=== PATIENT | male | born 1970 | race Caucasian/White ===

== ENCOUNTER 2020-09-08 17:10 | Outpatient (REF) | payer OTHER, SELFPAY ==
[2020-09-08 17:56] LABS: MANUAL DIFF FLAG NO
[2020-09-08 17:59] LABS: Glucose Urine UA NEG (NEG); Leukocyte Esterase Urine NEG (NEG); Nitrite Urine NEG (NEG); Urine Blood 1+ (NEG); Urine Ketones NEG (NEG); Urine Protein NEG (NEG-TRACE)
[2020-09-08 18:01] LABS: Appearance Urine CLEAR; Color Urine YELLOW
[2020-09-08 18:05] LABS: Bacteria Urine TRACE /LPF; RBC Urine 0-2 /HPF (0); Squamous Epithelial Cell Urine TRACE /LPF; WBC Urine 0 /HPF (0-4)
[2020-09-08 18:24] LABS: Basophils Percent Auto 0.4 % (0-2); Eosinophils Absolute Auto 0.1 X10*3/uL (0.0-0.4); Hemoglobin 14.4 g/dl (14.0-18.0); Imm Gran Abs Auto 0.03 X10*3/uL (0.00-0.03); Imm Gran Pct Auto 0.4 % (0.0-0.4); Lymphocytes Absolute Auto 1.8 X10*3/uL (1.2-4.9); Lymphocytes Percent Auto 23.2 % (20-40); Mean Corpuscular HGB Conc 33.5 g/dl (31.0-36.0); Mean Corpuscular Hemoglobin 30.6 pg (27.0-33.0); Mean Corpuscular Volume 91.3 fL (80-98); Mean Platelet Volume 8.8 fL (9.4-12.4); Monocytes Absolute Auto 0.6 X10*3/uL (0.1-1.2); Neutrophils Absolute Auto 5.4 X10*3/uL (2.0-8.3); Platelet Count 341 X10*3/uL (160-400); Red Blood Count 4.71 X10*6/uL (4.60-5.80); Red Cell Distribution Width 12.6 % (11.0-16.0); White Blood Count 7.9 X10*3/uL (4.8-10.8)
[2020-09-08 18:28] LABS: Alanine Aminotransferase 27 U/L (0-40); Albumin Level 4.3 g/dL (3.5-5.0); Alkaline Phosphatase 62 U/L (39-117); Anion Gap 11 (12-20); Aspartate Amino Transferase 24 U/L (5-37); Blood Urea Nitrogen 12 mg/dL (9-16); C Reactive Protein < 0.02 mg/dL (< or = 0.50); Calcium 9.6 mg/dL (8.4-10.2); Carbon Dioxide 25 mmol/L (22-29); Chloride 105 mmol/L (96-108); Cholesterol 178 mg/dL; Estimated Glomerular Filt Rate > 60; Glucose Fasting 79 mg/dL (60-99); HDL Cholesterol 53 mg/dL; LDL Cholesterol Calculated 109 mg/dl; Potassium 4.3 mmol/L (3.3-5.1); Sodium 137 mmol/L (135-145); Total Protein 6.7 g/dL (6.5-8.0); Triglycerides 81 mg/dL
[2020-09-08 18:49] LABS: Prostate Specific Antigen 0.81 ng/mL (<0.05-4.0)
== END 2020-09-08 17:11 | disposition home or self-care (01) ==
LOC: HO.LAB 17:10
PROVIDERS: PCP Internal Medicine; Visit Provider Internal Medicine
DX: Z00.00 Encounter for general adult medical examination without abnormal findings (principal); Z12.5 Encounter for screening for malignant neoplasm of prostate; R35.1 Nocturia
CPT/HCPCS: 36415; 80053; 80061; 81001; 82550; 84153; 85025; 86140

== ENCOUNTER 2021-11-24 07:03 | Outpatient (REF) | payer OTHER, SELFPAY ==
[2021-11-24 11:13] LABS: Basophils Percent Auto 0.5 % (0-2); Eosinophils Absolute Auto 0.3 X10*3/uL (0.0-0.4); Eosinophils Percent Auto 3.8 % (0-4); Hematocrit 46.4 % (42.0-52.0); Hemoglobin 15.2 g/dl (14.0-18.0); Imm Gran Abs Auto 0.02 X10*3/uL (0.00-0.03); Imm Gran Pct Auto 0.3 % (0.0-0.4); Lymphocytes Absolute Auto 2.4 X10*3/uL (1.2-4.9); MANUAL DIFF FLAG NO; Mean Corpuscular HGB Conc 32.8 g/dl (31.0-36.0); Mean Corpuscular Hemoglobin 29.9 pg (27.0-33.0); Mean Corpuscular Volume 91.3 fL (80.0-98.0); Mean Platelet Volume 9.6 fL (9.4-12.4); Monocytes Absolute Auto 0.5 X10*3/uL (0.1-1.2); Monocytes Percent Auto 7.4 % (2-11); Neutrophils Absolute Auto 4.1 x10*3/uL (2.0-8.3); Platelet Count 336 X10*3/uL (160-400); Red Blood Count 5.08 X10*6/uL (4.60-5.80); Red Cell Distribution Width 12.5 % (11.0-16.0); White Blood Count 7.3 X10*3/uL (4.8-10.8)
[2021-11-24 11:50] LABS: Vitamin B12 397 pg/mL (200-900)
[2021-11-24 11:59] LABS: Prostate Specific Antigen 0.97 ng/mL (<0.05-4.0)
[2021-11-24 12:11] LABS: Alanine Aminotransferase 23 U/L (0-40); Albumin Level 4.3 g/dL (3.5-5.0); Alkaline Phosphatase 76 U/L (39-117); Anion Gap 13 (12-20); Aspartate Amino Transferase 21 U/L (5-37); Bilirubin Total 0.9 mg/dL (0.0-1.0); Blood Urea Nitrogen 16 mg/dL (9-16); C Reactive Protein 0.03 mg/dL (< or = 0.50); Calcium 9.2 mg/dL (8.4-10.2); Carbon Dioxide 25 mmol/L (22-29); Chloride 106 mmol/L (96-108); Cholesterol 167 mg/dL; Estimated Glomerular Filt Rate > 60; Glucose Fasting 88 mg/dL (60-99); HDL Cholesterol 46 mg/dL; LDL Cholesterol Calculated 106 mg/dl; Potassium 4.5 mmol/L (3.3-5.1); Sodium 139 mmol/L (135-145); Total Protein 6.9 g/dL (6.5-8.0); Triglycerides 75 mg/dL
== END 2021-11-24 07:04 | disposition home or self-care (01) ==
LOC: HO.HMGCLDS 07:03
PROVIDERS: Visit Provider Internal Medicine
DX: Z00.00 Encounter for general adult medical examination without abnormal findings (principal); Z12.5 Encounter for screening for malignant neoplasm of prostate
CPT/HCPCS: 36415; 80053; 80061; 82550; 82607; 84153; 85025; 86140

== ENCOUNTER 2022-07-13 08:05 | Outpatient (REF) | payer OTHER, SELFPAY ==
[2022-07-13 11:25] LABS: MANUAL DIFF FLAG NO
[2022-07-13 11:45] LABS: Appearance Urine Clear; Color Urine Yellow; Glucose Urine UA Negative (Negative); Leukocyte Esterase Urine Negative (Negative); Nitrite Urine Negative (Negative); Urine Blood Negative (Negative); Urine Ketones Negative (Negative); Urine Protein Negative (Neg-Trace)
[2022-07-13 12:04] LABS: Basophils Percent Auto 0.5 % (0-2); Eosinophils Absolute Auto 0.1 X10*3/uL (0.0-0.4); Eosinophils Percent Auto 2.1 % (0-4); Hematocrit 48.5 % (42.0-52.0); Hemoglobin 15.8 g/dl (14.0-18.0); Imm Gran Abs Auto 0.01 X10*3/uL (0.00-0.03); Imm Gran Pct Auto 0.2 % (0.0-0.4); Lymphocytes Absolute Auto 1.5 X10*3/uL (1.2-4.9); Lymphocytes Percent Auto 24.7 % (20-40); Mean Corpuscular HGB Conc 32.6 g/dl (31.0-36.0); Mean Corpuscular Hemoglobin 29.8 pg (27.0-33.0); Mean Corpuscular Volume 91.3 fL (80.0-98.0); Mean Platelet Volume 9.3 fL (9.4-12.4); Monocytes Absolute Auto 0.4 X10*3/uL (0.1-1.2); Monocytes Percent Auto 6.8 % (2-11); Neutrophils Absolute Auto 4.1 x10*3/uL (2.0-8.3); Neutrophils Percent Auto 65.7 % (45-73); Platelet Count 336 X10*3/uL (160-400); Red Blood Count 5.31 X10*6/uL (4.60-5.80); Red Cell Distribution Width 12.2 % (11.0-16.0); White Blood Count 6.2 X10*3/uL (4.8-10.8)
[2022-07-13 12:39] LABS: Alanine Aminotransferase 24 U/L (0-40); Albumin Level 4.1 g/dL (3.5-5.0); Alkaline Phosphatase 92 U/L (39-117); Anion Gap 13 (12-20); Aspartate Amino Transferase 18 U/L (5-37); Bilirubin Total 0.8 mg/dL (0.0-1.0); Blood Urea Nitrogen 15 mg/dL (9-16); Calcium 9.2 mg/dL (8.4-10.2); Carbon Dioxide 27 mmol/L (22-29); Chloride 106 mmol/L (96-108); Cholesterol 177 mg/dL; Estimated Glomerular Filt Rate > 60; Glucose Fasting 89 mg/dL (60-99); HDL Cholesterol 42 mg/dL; LDL Cholesterol Calculated 124 mg/dl; Potassium 4.7 mmol/L (3.3-5.1); Prostate Specific Antigen 0.83 ng/mL (<0.05-4.0); Sodium 141 mmol/L (135-145); Total Protein 6.5 g/dL (6.5-8.0); Triglycerides 56 mg/dL
== END 2022-07-13 08:06 | disposition home or self-care (01) ==
LOC: HO.HMGCLDS 08:05
PROVIDERS: PCP Internal Medicine; Visit Provider Internal Medicine
DX: Z00.00 Encounter for general adult medical examination without abnormal findings (principal); Z12.5 Encounter for screening for malignant neoplasm of prostate
CPT/HCPCS: 36415; 80053; 80061; 81003; 84153; 85025

== ENCOUNTER 2023-05-11 11:31 | Emergency (ER) | payer OTHER, SELFPAY ==
--- NOTE | 2023-05-11 11:28 | ED.GENADULT ---
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 Rates it a 1 or 2/10 and states its worse w/ deep breathing. No significant past medical history or cardiac history. No history of clots. He does report he is under a lot stress at work. No recent travel, not a smoker, not sedentary, no history of malignancy. Related Data Previous Rx's Medication Instructions Recorded ketorolac 10 mg tablet 10 mg PO TID PRN pain 5 days #15 05/11/23 tabs prednisone 20 mg tablet 20 mg PO DAILY 5 days #5 tabs 05/11/23 Allergies Allergy/AdvReac Type Severity Reaction Status Date / Time No Known Allergies Allergy Verified 05/11/23 16:28 Review of Systems Review of Systems: Constitutional : No Weight loss, No Fever, No Chills, No Fatigue, No Malaise ENT/Mouth : No sore throat, No Rhinorrhea Eyes: No Eye Pain, No Swelling, No Redness Cardiovascular : No Chest Pain, No SOB, No Dyspnea on Exertion, No Orthopnea, No Edema, No Palpitations Respiratory : No Cough, No Sputum, No Wheezing Gastrointestinal : No Nausea, No Vomiting, No Diarrhea, No Constipation, No abdominal Pain, No Hematochezia, No Melena Genitourinary : No Dysuria, No Urinary Frequency, No Hematuria, Musculoskeletal : No joint pain, No Myalgias, No Joint Swelling Skin : No Skin Lesions, No rash Neuro : No Weakness, No Numbness, No Dizziness, No Headache Psych : No Anxiety/Panic, No Depression All other systems reviewed and are negative Yes all other systems are reviewed and are negative [facility] Past Medical History Attestation statement: The following information was validated with the patient. Source: old records reviewed and nursing notes reviewed Onset Date is defined in the Problem List Problems that require an onset date and time if occurred within 24 hrs of arrival to the ED Aortic Dissection and Rupture; Neurologic impairment; Cardiopulmonary Arrest; Endotracheal Intubation; Insertion or Replacement of Mechanical Circulatory Assist Device Social History Social History Smoked in Last 30 Days: No Advance Directives: Yes Advance Directives Information Provided: Yes Advance Directives on File: No Physical Exam ED Vital Signs: Vital Signs - 24 hr 05/11/23 11:38 05/11/23 15:24 Temperature 98.1 F Pulse Rate 77 68 Respiratory Rate 18 18 Blood Pressure 121/83 125/76 Pulse Oximetry 100 99 Oxygen Delivery Method Room Air Room Air BMI result Body Mass Index 28.5 vss Appearance: Alert.? Oriented X3.? No acute distress.? Head: Normocephalic, atraumatic, no step-offs or deformities Eyes: Pupils equal, round and reactive to light.? ENT: Pharynx normal.? Neck: Normal inspection.? Neck supple.? CVS: Normal heart rate and rhythm.? Pulses normal.? No appreciated murmur. Respiratory: No respiratory distress.? Breath sounds normal.? Abdomen: Soft and nontender.? Skin: Skin warm and dry.? Normal skin color.? Normal skin turgor.? Extremities: No lower extremity edema.? No calf ttp. 5/5 strength to bilateral upper and lower extremities Neuro: Oriented X 3.? No motor deficit.? No sensory deficit. CN 2-12 intact Course Reevaluation(s) Reevaluation #1: CBC unremarkable. Chemistry no acute findings requiring intervention. Troponin negative x2, EKG nonischemic. D-dimer 275, CT ordered, CTA with no evidence of PE, no evidence of aortic aneurysm or dissection, minimal dependent bibasilar ground-glass atelectasis or nonspecific inflammatory process. VT negative. Chest x-ray unremarkable. UA w/o infection. Flu/COVID/RSV negative. Time: 16:14 Reevaluation #2: Had a long conversation with patient about his results. Explained to me should not return to work do any strenuous exercises until medically cleared by Cardiology. He does not have any pain at this time. He tells me this may just be stress. He is feeling much better. Discussed this case with Dr. Stinson who agrees with diagnosis and treatment plan. I will still discuss this case w/ cardiology Time: 16:32 Reevaluation #3: I did gary text Dr. Knapp, and explained to him i feel as though this patient would benifit from prompt cardiology f/u. Time: 16:34 Additional Reevaluation(s): Cardiology in room speaking to patient. 1656 Cardiology did want patient to stay and get a stress test on Sunday, patient did not want to stay over the weekend. Cardiology will set him up for stress test early next week. Patient did not want to stay in was adamant he would like to go home. He was educated on worrisome signs and symptoms. Educated patient on diagnosis and treatment plan, answered all question, patient verbalizes understanding. At this time patient will be discharged home, advised to return with new or worsening symptoms. Educated on worrisome signs and symptoms and when to return. Medications Administered Discontinued Medications Generic Name Dose Route Start Last Admin Trade Name Freq PRN Reason Stop Dose Admin Iohexol 100 ml 05/11/23 13:28 05/11/23 13:28 Iohexol 350 Mg/Ml 100 Ml Infus..Btl IV 05/11/23 13:29 65 ml ONCE ONE Administration Ketorolac Tromethamine 30 mg 05/11/23 16:14 05/11/23 16:28 Ketorolac Tromethamine 15 Mg/Ml Vial IM 05/11/23 16:15 Not Given ONCE ONE Medical Decision Making Medical Decision Making [facility] Narrative: 52-year-old male presents with chest pain that started with exertion while at work Physical examination benign History and physical exam concerning for possible angina versus ACS versus PE versus viral illness. Other differentials include musculoskeletal spasm versus anxiety. Unlikely dissection, acute respiratory distress. Plan labs, EKG, imaging, viral test peer Differential Diagnosis Differential Diagnoses: The differential diagnosis associated with the presentation includes History and physical exam concerning for possible angina versus ACS versus PE versus viral illness. Other differentials include musculoskeletal spasm versus anxiety. Unlikely dissection, acute respiratory distress. Admission/Observation Consideration of admission/observation: Escalation of care including admission/observation considered Consult Healthcare Provider Management of the patient was discussed with: Nurse Practitioner Adult (Cardiology ) Lab Data [facility] Lab Attestation statement: I reviewed the patient's lab results. 05/11/23 11:51 05/11/23 11:50 Labs: Lab Results 05/11/23 05/11/23 05/11/23 Range/Units 11:50 11:51 14:11 WBC 7.7 (4.8-10.8) X10*3/uL RBC 4.97 (4.60-5.80) X10*6/uL Hgb 15.2 (14.0-18.0) g/dl Hct 43.9 (42.0-52.0) % MCV 88.3 (80.0-98.0) fL MCH 30.6 (27.0-33.0) pg MCHC 34.6 (31.0-36.0) g/dl RDW 11.7 (11.0-16.0) % Plt Count 310 (160-400) X10*3/uL MPV 8.7 L (9.4-12.4) fL Immature Gran % (Auto) 0.1 (0.0-0.4) % Neut % (Auto) 80.4 H (45-73) % Lymph % (Auto) 12.9 L (20-40) % Kay % (Auto) 5.8 (2-11) % Eos % (Auto) 0.4 (0-4) % Baso % (Auto) 0.4 (0-2) % Lymph # (Auto) 1.0 L (1.2-4.9) X10*3/uL Kay # (Auto) 0.5 (0.1-1.2) X10*3/uL Eos # (Auto) 0.0 (0.0-0.4) X10*3/uL Baso # (Auto) 0.0 (0.0-0.2) X10*3/uL Abs Immat Gran (auto) 0.01 (0.00-0.03) X10*3/uL Absolute Neuts (auto) 6.2 (2.0-8.3) x10*3/uL Absolute Nucleated RBC 0.000 (0.0-0.012) X10*3/uL Nucleated RBC % (auto) 0.0 (0.0-0.2) /100WBC D-Dimer High Sensitivty 275 NG/ML Sodium 138 (135-145) mmol/L Potassium 5.0 (3.3-5.1) mmol/L Chloride 105 (96-108) mmol/L Carbon Dioxide 26 (22-29) mmol/L Anion Gap 12 (12-20) BUN 10 (9-16) mg/dL Creatinine 1.00 (0.5-1.4) mg/dL Estim Creat Clear Calc 104.7 Estimated GFR > 60 Random Glucose 102 (60-115) mg/dL Calcium 9.5 (8.4-10.2) mg/dL Total Bilirubin 0.6 (0.0-1.0) mg/dL AST 26 (5-37) U/L ALT 26 (0-40) U/L Alkaline Phosphatase 77 (39-117) U/L Troponin I High Sens < 2.7 (<3.5-35.0) ng/L B-Natriuretic Peptide 23 (<100) pg/mL Total Protein 7.1 (6.5-8.0) g/dL Albumin 4.3 (3.5-5.0) g/dL Urine Color Yellow Urine Appearance Clear Urine pH 7.5 (5.0-9.0) Ur Specific [place] 1.010 (1.005-1.025) Urine Protein Negative (Neg-Trace) mg/dL Urine Glucose (UA) Negative (Negative) mg/dL Urine Ketones Negative (Negative) mg/dL Urine Blood Negative (Negative) Urine Nitrite Negative (Negative) Ur Leukocyte Esterase Negative (Negative) Influenza Type A (PCR) NEGATIVE (Negative) Influenza Type B (PCR) NEGATIVE (Negative) RSV RNA Qual (PCR) NEGATIVE (Negative) SARS-CoV-2 RNA (RT-PCR) NEGATIVE (Negative) 05/11/23 Range/Units 14:48 WBC (4.8-10.8) X10*3/uL RBC (4.60-5.80) X10*6/uL Hgb (14.0-18.0) g/dl Hct (42.0-52.0) % MCV (80.0-98.0) fL MCH (27.0-33.0) pg MCHC (31.0-36.0) g/dl RDW (11.0-16.0) % Plt Count (160-400) X10*3/uL MPV (9.4-12.4) fL Immature Gran % (Auto) (0.0-0.4) % Neut % (Auto) (45-73) % Lymph % (Auto) (20-40) % Kay % (Auto) (2-11) % Eos % (Auto) (0-4) % Baso % (Auto) (0-2) % Lymph # (Auto) (1.2-4.9) X10*3/uL Kay # (Auto) (0.1-1.2) X10*3/uL Eos # (Auto) (0.0-0.4) X10*3/uL Baso # (Auto) (0.0-0.2) X10*3/uL Abs Immat Gran (auto) (0.00-0.03) X10*3/uL Absolute Neuts (auto) (2.0-8.3) x10*3/uL Absolute Nucleated RBC (0.0-0.012) X10*3/uL Nucleated RBC % (auto) (0.0-0.2) /100WBC D-Dimer High Sensitivty NG/ML Sodium (135-145) mmol/L Potassium (3.3-5.1) mmol/L Chloride (96-108) mmol/L Carbon Dioxide (22-29) mmol/L Anion Gap (12-20) BUN (9-16) mg/dL Creatinine (0.5-1.4) mg/dL Estim Creat Clear Calc Estimated GFR Random Glucose (60-115) mg/dL Calcium (8.4-10.2) mg/dL Total Bilirubin (0.0-1.0) mg/dL AST (5-37) U/L ALT (0-40) U/L Alkaline Phosphatase (39-117) U/L Troponin I High Sens < 2.7 (<3.5-35.0) ng/L B-Natriuretic Peptide (<100) pg/mL Total Protein (6.5-8.0) g/dL Albumin (3.5-5.0) g/dL Urine Color Urine Appearance Urine pH (5.0-9.0) Ur Specific [place] (1.005-1.025) Urine Protein (Neg-Trace) mg/dL Urine Glucose (UA) (Negative) mg/dL Urine Ketones (Negative) mg/dL Urine Blood (Negative) Urine Nitrite (Negative) Ur Leukocyte Esterase (Negative) Influenza Type A (PCR) (Negative) Influenza Type B (PCR) (Negative) RSV RNA Qual (PCR) (Negative) SARS-CoV-2 RNA (RT-PCR) (Negative) Independent Interpretation I performed an independent interpretation of an: EKG (Intra-ocular rate of 76, NM normal, QRS normal, QT/QTC normal.), Plain X-Ray (XR/XR chest 1V IMPRESSION: Unremarkable examination. ) and CT Scan (CT/CT angio chest PE protocol IMPRESSION: No evidence of PE. No evidence of aortic aneurysm or dissection. Minimal dependent bibasilar groundglass atelectasis or nonspecific inflammatory process. VTE: Negative) Radiology Impression Discussion of test interpretation with radiology: I have reviewed the radiologist's reading. Prescription Management I considered prescription management with: Pain Medication Critical Care Time Critical Care Time Critical Care Time: Yes Total Critical Care Time: 35 Attestation: I attest to this time spent taking care of the patient, obtaining history, physical, reviewing labs, imaging, speaking to my attending, speaking to specialist. Discharge Plan Discharge Clinical Impression: Chest pain Patient Disposition: Home, Self-Care Instructions: Chest Pain (ED) Additional Instructions: Take your medications as prescribed. If you were prescribed antibiotics today, it is important that you take your medication to their entirety, do not skip any doses, do not finish them early. Follow-up with your primary care provider this week. Follow-up with cardiology Return to the emergency department with new or worsening symptoms. Such as fevers, chills, chest pain, shortness of breath, nausea, vomiting, dizziness, headache, vision changes, lethargy In case of emergency call 911 Do not return to work until you have a stress test done and see Cardiology. Do not shovel snow or exert herself at all. This can be very dangerous. You could have some sort of viral illness. Prescriptions: New ketorolac 10 mg tablet 10 mg PO TID PRN (Reason: pain) 5 Days Qty: 15 0RF prednisone 20 mg tablet 20 mg PO DAILY 5 Days Qty: 5 0RF Referrals: [facility] [Provider Group] - 1 day Jose Becerra MD [Primary Care Provider] - 2 days Stand Alone Forms: Work/School Release Interventions: ED Discharge Assessment Last Done: 05/11/23 16:33
[2023-05-11 11:38] VITALS: BP 121/83; BP 140/92; PULSE 77; RESP 18; TEMP 36.7; O2SAT 100; BMI 28.5
[2023-05-11 15:24] VITALS: BP 125/76; PULSE 68; RESP 18; O2SAT 99
--- NOTE | 2023-05-11 15:26 | PC.NURSE ---
pt denies chest pain. NSR on tele.
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
== END 2023-05-11 17:16 | disposition home or self-care (01) ==
PROVIDERS: Emergency Provider Student in an Organized Health Care Education/Training Program; PCP Internal Medicine
DX: R07.89 Other chest pain (principal); R06.02 Shortness of breath; Z79.899 Other long term (current) drug therapy; Z20.828 Contact with and (suspected) exposure to other viral communicable diseases; Z20.822 Contact with and (suspected) exposure to COVID-19
CPT/HCPCS: 0241U; 36415; 71045; 71275; 80053; 81003; 83880; 84484; 85025; 85379; 93005; 99284; 99285; Q9967

== ENCOUNTER → 2023-05-11 11:59 | Outpatient (BNV) | payer OTHER, SELFPAY | PROVIDERS: Emergency Provider Student in an Organized Health Care Education/Training Program; PCP Internal Medicine; Visit Provider Internal Medicine Cardiovascular Disease | DX: R07.9 Chest pain, unspecified (principal) | CPT/HCPCS: 93010; 99222 ==

== ENCOUNTER → 2023-05-14 13:50 | Outpatient (REF) | payer OTHER, SELFPAY ==
--- NOTE | 2023-05-14 13:55 | CA_ITS ---
Acquisition Time: 2023-05-14 13:54:23 Total Exercise Time: 00:10:55 Test Indications: CP Medications: SEE H Protocol: LADARIUS Max HR: 164 BPM 97% of Pred: 169 BPM Max BP: 184/082 mmHG Max Work Load: 13.2 METS Exercise stress test exercise 10 min 55 sec of Ladarius protocol achieving 95% MPHR, with mild SOB, 1/10 left chest stabbing, with isolated PVCs, with normotensive response to exercise, without EKG changes. Chest discomfort resolved in recovery. Test reviewed with Dr. Bush Referred By: Kya Hoffmann Overread By: Randa Erwin
== END ==
LOC: HO.CARD 13:50
PROVIDERS: PCP Internal Medicine; Visit Provider Nurse Practitioner Family
DX: R07.9 Chest pain, unspecified (principal)
CPT/HCPCS: 93017

== ENCOUNTER → 2023-05-14 13:55 | Outpatient (BNV) | payer OTHER, SELFPAY | PROVIDERS: PCP Internal Medicine; Visit Provider Nurse Practitioner | DX: R07.9 Chest pain, unspecified (principal) | CPT/HCPCS: 93016; 93018 ==

== ENCOUNTER 2023-09-10 06:59 | Outpatient (REF) | payer OTHER, SELFPAY ==
[2023-09-10 10:30] LABS: Appearance Urine Clear; Color Urine Yellow; Glucose Urine UA Negative (Negative); Leukocyte Esterase Urine Negative (Negative); Nitrite Urine Negative (Negative); PH 6.5 (5.0-9.0); Specific Gravity - Urine <= 1.005 (1.005-1.025); Urine Blood Negative (Negative); Urine Ketones Negative (Negative); Urine Protein Negative (Neg-Trace)
[2023-09-10 10:32] LABS: MANUAL DIFF FLAG NO
[2023-09-10 10:40] LABS: Basophils Percent Auto 0.7 % (0-2); Eosinophils Absolute Auto 0.2 X10*3/uL (0.0-0.4); Eosinophils Percent Auto 3.6 % (0-4); Hematocrit 46.1 % (42.0-52.0); Hemoglobin 15.2 g/dl (14.0-18.0); Imm Gran Abs Auto 0.01 X10*3/uL (0.00-0.03); Imm Gran Pct Auto 0.2 % (0.0-0.4); Lymphocytes Absolute Auto 1.2 X10*3/uL (1.2-4.9); Lymphocytes Percent Auto 20.6 % (20-40); Mean Corpuscular Hemoglobin 30.6 pg (27.0-33.0); Mean Corpuscular Volume 92.8 fL (80.0-98.0); Mean Platelet Volume 9.3 fL (9.4-12.4); Monocytes Absolute Auto 0.3 X10*3/uL (0.1-1.2); Monocytes Percent Auto 5.9 % (2-11); Platelet Count 332 X10*3/uL (160-400); Red Blood Count 4.97 X10*6/uL (4.60-5.80); Red Cell Distribution Width 12.2 % (11.0-16.0); White Blood Count 5.8 X10*3/uL (4.8-10.8)
[2023-09-10 11:07] LABS: Alanine Aminotransferase 28 U/L (0-40); Albumin Level 4.1 g/dL (3.5-5.0); Alkaline Phosphatase 68 U/L (39-117); Anion Gap 14 (12-20); Aspartate Amino Transferase 24 U/L (5-37); Bilirubin Total 0.3 mg/dL (0.0-1.0); Blood Urea Nitrogen 16 mg/dL (9-16); C Reactive Protein < 0.04 mg/dL (< or = 0.50); Calcium 9.1 mg/dL (8.4-10.2); Carbon Dioxide 24 mmol/L (22-29); Chloride 103 mmol/L (96-108); Cholesterol 142 mg/dL (<200); Estimated Glomerular Filt Rate > 60; Glucose Fasting 89 mg/dL (60-99); HDL Cholesterol 51 mg/dL (>40); LDL Cholesterol Calculated 79 mg/dL (<100); Potassium 4.5 mmol/L (3.3-5.1); Sodium 136 mmol/L (135-145); Total Protein 6.9 g/dL (6.5-8.0); Triglycerides 61 mg/dL (<150)
[2023-09-10 11:13] LABS: Prostate Specific Antigen 0.79 ng/mL (<0.05-4.0)
== END 2023-09-10 07:00 | disposition home or self-care (01) ==
LOC: HO.HMGCLDS 06:59
PROVIDERS: PCP Internal Medicine; Visit Provider Internal Medicine
DX: M54.9 Dorsalgia, unspecified (principal); R35.1 Nocturia; K21.9 Gastro-esophageal reflux disease without esophagitis; Z12.5 Encounter for screening for malignant neoplasm of prostate
CPT/HCPCS: 36415; 80053; 80061; 81003; 82378; 82550; 84153; 85025; 86140; 87086

== ENCOUNTER 2023-10-31 07:42 | Outpatient (AMB) | payer OTHER, SELFPAY ==
--- NOTE | 2023-10-31 07:58 | A.OFFVIS_ITS ---
Vital Signs 10/31/23 08:06 Height 6 ft Weight 201 lb 15.095 oz BMI 27.4 BP 112/80 Blood Pressure Location Lt brachial Position Sitting Pulse 74 Pulse Source Pulse Oximeter Pulse Oximetry (%) 99 Oxygen Delivery Method Room Air Intake Visit Reasons: Colonoscopy Screening Intake Note: Ric presents in office today for a scheduled initial office visit / colo scrn CC: Ric reports that he has previous hx of colo s/p (approximately 10 years ago). Pt reports that they are having some LLQ abdominal pain which has been present for multiple years. Pt reports that his PCP also recommended the recall based on recent lab values. Director Instrumentation Required: No Allergies Latex, Natural Rubber Allergy (Intermediate, Verified 10/31/23 08:05) rash HPI HPI Colonoscopy Screening: Details: 53 year old? male here today for pre colonoscopy screening.? Patient was sent to us by his PCP.? Maternal grandfather and maternal uncle had colorectal cancer. Patient reports occasional left lower quadrant pain mostly associated to not being empty completely. Patient reports that he changed his diet currently in drinking more fluids the pain is getting better..? Patient denies any other gastrointestinal symptoms in the past or at present.? Denies history of difficulty with sedation or anesthesia in the past.? Negative for history of sleep apnea.? Denies any history of cardiac, renal, pulmonary, or hepatic disease.?? No history of infectious? diseases like hepatitis A, B, C, HIV or tuberculosis.? Patient is not on any anticoagulation [facility] Medical History (Updated 10/31/23 @ 08:04 by LISA Gonzales) Anxiety and depression Surgical History (Updated 10/31/23 @ 08:04 by LISA Gonzales) History of colonoscopy Family History (Updated 10/31/23 @ 08:04 by LISA Gonzales) Unknown Rectal cancer Social History (Updated 10/31/23 @ 08:05 by LISA Gonzales) Alcohol intake: current Comment: Occasional/socially Patient Tobacco Use Status: Never used Tobacco Use of substances other than those prescribed or required for medical reasons: No Review of Systems Const Denies weight gain and Denies weight loss ENT Reports no additional complaints, Denies dysphagia and Denies odynophagia Card Reports no additional complaints Resp Reports no additional complaints GI Reports abdominal pain (LLQ), Denies belching, Denies melena, Denies bloating, Denies change in bowel habits, Denies dysphagia, Denies excessive flatus, Denies dyspepsia, Denies heartburn, Denies diarrhea, Denies loose stools, Denies nausea, Denies odynophagia and Denies vomiting Reports no additional complaints Musc Reports no additional complaints Neuro Reports no additional complaints Psych Reports no additional complaints Endo Reports no additional complaints Physical Exam Vital Signs: Last Vital Signs Pulse 74 10/31/23 08:06 BP 112/80 10/31/23 08:06 Pulse Ox 99 10/31/23 08:06 Oxygen Delivery Method Room Air 10/31/23 08:06 BMI result Body Mass Index 27.4 Const General: healthy appearing, no acute distress and well developed Nutritional Appearance: well nourished Orientation/consciousness: patient oriented x3 Resp Effort & Inspection: normal respiratory effort, able to speak in complete sentences, no tracheal deviation and symmetric chest movement Auscultation: clear to auscultation bilaterally Cardio Rate: regular rate GI Inspection: Yes normal to inspection and No distended Palpation (GI): Soft to palpation, not firm, nontender and No hepatosplenomegaly present Auscultation: normal bowel sounds General: Yes no CVA tenderness Back/Spine/Pelvis Back: no CVA tenderness Skin General skin exam: elasticity normal, turgor normal and dry skin Neuro General: patient oriented x3 Psych Appearance: grossly normal Mental Status: mental status grossly normal Assessment & Plan Assessment & Plan (1) Screen for colon cancer: Code(s): Z12.11 - Encounter for screening for malignant neoplasm of colon Plan Patient denies any cardiac or respiratory symptoms.? Denies any issues with anesthesia in the past.? Denies any history of sleep apnea.? No history infectious diseases in the past or present.? Not on any anticoagulation therapy.? Family history of CRC. Patient denies melena, hematochezia, unintentional weight loss or ribbon like stools.? Discussed at length the pre- procedure,? prep, diet & medications as well as what to expect prior, during and after the procedure.?? Stressed the importance of good bowel prep.? Recommended the use of Vaseline or Calmoseptine OTC & baby wipes with bowel movements to promote comfort.? ?Patient verbalizes understanding and agrees to plan of care.? He was given the opportunity to ask questions and all questions answered.? We will see him after the procedure.? Medications: New bisacodyl (Dulcolax (bisacodyl)) take 4 tabs at noon the day before your colonoscopy 20 mg (4 x 5 mg) PO ONCE 4 tabs 0RF 1 day Z12.11 - Encounter for screening for malignant neoplasm of colon polyethylene glycol 3350 (Miralax) As directed by gastroenterology department at [facility] 238 grams PO ONCE 238 grams 0RF Z12.11 - Encounter for screening for malignant neoplasm of colon Coding Level of Care Code New Pt Level 3 (89374) Diagnoses Screen for colon cancer Z12.11 Time Spent (min) 40 Comment 30 minutes spent with patient and additional 10 minutes spent reviewing his records
[2023-10-31 08:06] VITALS: BP 112/80; PULSE 74; O2SAT 99; BMI 27.4
== END 2023-10-31 09:09 | disposition home or self-care (01) ==
PROVIDERS: PCP Internal Medicine; Visit Provider Nurse Practitioner Family
DX: Z01.818 Encounter for other preprocedural examination (principal); Z12.11 Encounter for screening for malignant neoplasm of colon
CPT/HCPCS: S0285

== ENCOUNTER → 2023-10-31 07:42 | Outpatient (BNVA) | payer OTHER, SELFPAY | PROVIDERS: PCP Internal Medicine; Visit Provider Nurse Practitioner Family ==

== ENCOUNTER 2024-03-20 06:57 | Day surgery (SDC) | payer OTHER, SELFPAY ==
[2024-03-18 14:36] VITALS: BMI 27.4
--- NOTE | 2024-03-19 09:10 | HO.ANESPROP2 ---
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 Outpatient exercise stress nml. [facility] Past Medical History Medical History Anxiety and depression Family History Family History Unknown Rectal cancer Surgical History Surgical History History of colonoscopy Social History Social History Alcohol intake: current Comment: Occasional/socially Patient Tobacco Use Status: Never used Tobacco Use of substances other than those prescribed or required for medical reasons: No Are you DNR?: No Advance Directives: No Advance Directives Information Provided: Yes Recently lost weight without trying: No Meds Allergies Allergy/AdvReac Type Severity Reaction Status Date / Time Latex, Natural Rubber Allergy Intermediate rash Verified 03/20/24 07:51 Home Medications ?Medication ?Instructions ?Recorded ?Confirmed ?Last Taken ?Type fluoxetine 20 mg capsule 20 mg PO DAILY 10/31/23 03/20/24 03/20/24 05:30 History Exam Height,Weight and Vital Signs: Height 6 ft Weight 91.597 kg Narrative Narrative: Exercise Stress Protocol: LADARIUS Max HR: 164 BPM 97% of Pred: 169 BPM Max BP: 184/082 mmHG Max Work Load: 13.2 METS Exercise stress test exercise 10 min 55 sec of Ladarius protocol achieving 95% MPHR, with mild SOB, 1/10 left chest stabbing, with isolated PVCs, with normotensive response to exercise, without EKG changes. Chest discomfort resolved in recovery. Test reviewed with Dr. Bush Assessment and Plan Assessment Anesthesia Assessment: Chart Reviewed Documented by User: Antonette Delaney MD 03/20/24 08:41 [facility] Past Medical History Medical History Anxiety and depression Family History Family History Unknown Rectal cancer Surgical History Surgical History History of colonoscopy History of Problems with Anesthesia: No Social History Social History Alcohol intake: current Comment: Occasional/socially Patient Tobacco Use Status: Never used Tobacco Use of substances other than those prescribed or required for medical reasons: No Are you DNR?: No Advance Directives: No Advance Directives Information Provided: Yes Recently lost weight without trying: No Meds Allergies Allergy/AdvReac Type Severity Reaction Status Date / Time Latex, Natural Rubber Allergy Intermediate rash Verified 03/20/24 07:51 Home Medications ?Medication ?Instructions ?Recorded ?Confirmed ?Last Taken ?Type fluoxetine 20 mg capsule 20 mg PO DAILY 10/31/23 03/20/24 03/20/24 05:30 History Exam Airway Mallampati Class: III TM Dist: >3cm Neck ROM: Full Loose/Missing/Broken Teeth: No Heart: RRR Lungs: CTA Assessment and Plan Assessment Anesthesia Assessment: Anesthesia Plan Discussed Final Anesthetic Review History of Problems with Anesthesia: No NPO: Yes ASA Class: II Final Preanesthetic Review: Meds/Allgs Chart Reviewed, Consent Obtained/Reviewed and Anes Risks/Benef Reviewed Patient Risk: Low Procedure Risk: Low Anesthetic Plan Anesthetic Plan: MAC: Disposition: Standard PACU
[2024-03-20 07:52] VITALS: BMI 26.0
[2024-03-20 07:57] VITALS: BP 112/81; PULSE 62; RESP 15; TEMP 36.1; O2SAT 99
--- NOTE | 2024-03-20 08:04 | MHC.SHP ---
Pre-Procedural Eval Section A - 24 Hr Update-Section A only Date of Service: 03/20/24 Section B - Complete if H&P > 30 days Chief Complaint: screening Details of Present Illness: unsure if >2 second deg relateives with CRC Relevant Family History (Specify if Yes): Yes Relevant Social History: None Present Medications: see Short Stay Collaborative assessment Medical History: Significant History (anxiety) History of Previous Operations: Relevant previous surgery/procedure and date(s) (colonoscopy) Allergies: Allergies Allergy/AdvReac Type Severity Reaction Status Date / Time Latex, Natural Rubber Allergy Intermediate rash Verified 03/20/24 07:51 Review of Systems Sugical H&P ROS: Negative: Constitution, Cardiovascular, Respiratory, Neurological, Psychiatric, Hem-Onc, Allergic/Immunologic, Gastrointestinal, Genitourinary, Musculoskeletal, Integumentary, Endocrine and Eyes/Ears/Nose/Throat Exam Surgical H&P Exam: Normal: HEENT, Normal: Heart, Normal: Lungs, Normal: Extremities, Normal: Abdomen, Normal: Skin and Normal: Neurological Plan Diagnosis/Plan: Unchanged I have reviewed the history and physical and performed a pertinent physical examination on my patient. No changes have occurred unless specified. Time Spent With Patient Time: Total time managing care of this patient today ____ minutes.
[2024-03-20] MEDS: Lactated Ringers 1,000 ML 100 ML IVCONT (08:15)
--- NOTE | 2024-03-20 09:27 | HO.OPN-COLON ---
Colonoscopy Operative Note Operative Note Date of Service: 03/20/24 Narrative: Operative Information Procedure Description: Colonoscopy Indication: screening Anesthesia: MAC COLONOSCOPY Instrument: Olympus variable stiffness ADULT scope 190L Colonoscopy Monitoring: Vital signs and clinical assessment, continuous EKG monitoring, Pulse oximetry, Carbon Dioxide monitoring and blood pressure monitoring were done throughout the procedure. Colon withdrawal time was 22 minutes. Procedure: The patient was placed in the left lateral decubitis position and pre-procedure medications were administered. After a digital rectal examination of the ano-rectum, the video colonoscope was inserted into the rectum and advanced through the colon to the cecum/TI. The colonoscope was slowly withdrawn in a retrograde panoramic fashion and the colon mucosa was carefully examined including a retroflexed view of the rectum. Findings and interventions are described below. Procedure Difficulty: easy Findings: Terminal Ileum-normal Cecum: 10 mm flat polyp raised with eleview injection then removed with cold snare Right sided retroflexion- normal Ascending Colon: normal Transverse Colon -normal Descending Colon:normal Sigmoid Colon: mild diverticulosis with mucosal hypertrophy and luminal narrowing At 18 cm from anal junction 14-15 mm pedunculated polyp noted, injected with epinephrine and removed with hot snare with 2 clips applied for hemostasis Rectum: Retroflexion with medium sized internal hemorrhoids seen, grade I Anorectum - normal Intervention: eleview injection, cold snare, epinephrine injection, hot snare, clips Colon preparation: [place] Bowel Preparation Scale Right colon; 2 Transverse colon: 2 Left colon; 2 (0 = Unprepared colon segment with mucosa not seen due to solid stool that cannot be cleared. 1 = Portion of mucosa of the colon segment seen, but other areas of the colon segment not well seen due to staining, residual stool and/or opaque liquid. 2 = Minor amount of residual staining, small fragments of stool and/or opaque liquid, but mucosa of colon segment seen well. 3 = Entire mucosa of colon segment seen well with no residual staining, small fragments of stool or opaque liquid) Impression and Post Procedure Diagnosis: diverticulosis colon polyps internal hemorrhoids Plan: High fiber diet leaflet Avoid straining at stool, epsom salts and sitz bath, anusol supps or cream Repeat Colonoscopy in 1 year or earlier if clinically indicated Above findings were reviewed with the patient and relevant handouts were provided if indicated.
[2024-03-20 09:32] VITALS: BP 104/66; PULSE 68; RESP 18; TEMP 36.4; O2SAT 98
[2024-03-20 09:47] VITALS: BP 107/74; PULSE 64; RESP 20; TEMP 36.6; O2SAT 98
== END 2024-03-20 10:22 | disposition home or self-care (01) ==
PROVIDERS: PCP Internal Medicine; Visit Provider Internal Medicine Gastroenterology
PROC: 0DJD8ZZ Inspection of Lower Intestinal Tract, Via Natural or Artificial Opening Endoscopic (ICD-10-PCS; CPT 45378; principal; 2024-03-20 09:10)
DX: Z12.11 Encounter for screening for malignant neoplasm of colon (principal); D12.0 Benign neoplasm of cecum; D12.7 Benign neoplasm of rectosigmoid junction; K63.5 Polyp of colon; K57.30 Diverticulosis of large intestine without perforation or abscess without bleeding; K64.0 First degree hemorrhoids; F41.9 Anxiety disorder, unspecified; Z79.899 Other long term (current) drug therapy; Z91.040 Latex allergy status
CPT/HCPCS: 45385; 45381; 88305; J2003; J2704

== ENCOUNTER → 2024-03-20 06:57 | Outpatient (BNV) | payer OTHER, SELFPAY | PROVIDERS: PCP Internal Medicine; Visit Provider Internal Medicine Gastroenterology | DX: Z12.11 Encounter for screening for malignant neoplasm of colon (principal); D12.7 Benign neoplasm of rectosigmoid junction; K63.5 Polyp of colon; K64.0 First degree hemorrhoids | CPT/HCPCS: 45381; 45385 ==

== ENCOUNTER 2024-10-22 09:19 | Outpatient (AMB) | payer OTHER, SELFPAY ==
--- NOTE | 2024-10-22 09:21 | MHC.PC.OV ---
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 He lives at home with his and 2 children and feels safe there. 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 He does exercise on a regular basis and follows healthy diet. MDD/anxiety/PTSD-continues on fluoxetine 20 mg daily but is interested in learning about additional medications that may help with the PTSD and associated nightmares. He does following with a counselor who is helping. Reports PTSD symptoms are largely related to his career with the [employer] department over the last 30+ years. Denies any SI/HI. BPH-has followed with [facility] in the past. Had a negative cystoscopy. He does experience symptoms including increased urinary frequency daytime/nighttime as well as urinary urgency. No weak stream or incomplete bladder emptying, did have normal postvoid residual in Urology GERD-stable Chronic low back pain-stable Concerns: Upper respiratory infection about 10 days ago. Has sore throat, laryngitis, headache, fatigue. Most symptoms have resolved but does have ongoing chest tightness, worse with inspiration. No fevers, chills, dyspnea, wheezing, chest pressure. Ongoing for days. No history of chronic lung diseases. Health maintenance: Last colonoscopy 03/20/2024 showing diverticulosis, internal hemorrhoids and colon polyps-pathology showing sessile serrated polyp/lesion without dysplasia, clinically polypoid colonic mucosa negative for hyperplastic or neoplastic process, as well as tubular adenoma negative for high-grade dysplasia. One year follow-up advised. Dr. Zack oCx for PSA screening ROS: General: No fevers, malaise, unintentional weight loss HEENT: No blurred vision, diplopia. No sore throat, nasal congestion, rhinorrhea, sinus pain, ear pain Neck - no adenopathy Cardiovascular: No chest pain, palpitations, or leg edema. see hpi Respiratory: No shortness of breath, wheezing, cough GI: +sull rlq pain. no nausea, vomiting, diarrhea, constipation, melena, hematochezia : See HPI MSK: No myalgia, back pain, arthralgias Neuro: No headaches, weakness, paresthesias Psych: no depression/anxiery. No AH/VH. No SI/HI Skin: No rashes or lesions EXAM: Constitutional - Awake and Alert, No apparent distress Eyes - PERRLA, EOMI. Anicteric Nose- septum midline, nares clear, no sinus tenderness Mouth/throat- mucosa moist, tongue and uvula midline, no erythema/edema or tonsillar adenopathy. Neck-trachea midline, thyroid symmetric without palpable nodules, no adenopathy Cardiovascular - S1S2, RRR, No edema Respiratory - Normal lung expansion, Normal respiratory effort, No respiratory distress, CTA bilaterally Gastrointestinal - NT / ND; +BS; No rebound or guarding - No CVA tenderness Extremities - no calf tenderness bilaterally, no swelling Musculoskeletal - Normal inspection, normal ROM Skin - Warm/Dry Neurological - Alert & oriented x3, CN II-XII in tact, 5/5 strength BUE and BLE Psychological - Appropriate affect . ON LICENSE OF [facility] Medical History (Updated 10/22/24 @ 10:11 by LEW Lucas) BPH (benign prostatic hyperplasia) Chronic low back pain Anxiety MDD (major depressive disorder) PTSD (post-traumatic stress disorder) GERD (gastroesophageal reflux disease) Anxiety and depression Surgical History (Updated 10/22/24 @ 09:52 by LEW Lucas) S/P arthroscopy of right knee History of radial keratotomy S/P tonsillectomy History of colonoscopy (~03/20/24) Family History Unknown Rectal cancer Social History (Updated 10/22/24 @ 09:54 by LEW Lucas) Alcohol intake: current Alcohol intake frequency: a few times a week Comment: Occasional/socially Patient Tobacco Use Status: Never used Tobacco Questionnaire PHQ-9 Over the last 2 weeks, how often have you been bothered by any of the following problems? 1. Little interest or pleasure in doing things: several days 2. Feeling down, depressed, or hopeless: several days 3. Trouble falling or staying asleep, or sleeping too much: several days 4. Feeling tired or having little energy: several days 5. Poor appetite or overeating: several days 6. Feeling bad about yourself - or that you are a failure or have let yourself or your family down: several days 7. Trouble concentrating on things, such as reading the newspaper or watching television: several days 8. Moving or speaking so slowly that other people could have noticed. Or the opposite - being so fidgety or restless that you have been moving around a lot more than usual: several days 9. Thoughts that you would be better off or of hurting yourself in some way: not at all Total score: 8 Depression Screening Interpretation: Positive Depression Screening Done: Yes 54959 - PHQ-9 Billing: Yes Source: Developed by Drs. Jose Cabral, Yumi Frederick, Hebert Phillips and colleagues, with an educational sejal from [employer]. Thrive Questionnaire Date Thrive assessed: 10/22/24 I am a: Patient What is your living situation today?: I have a steady place to live Within the past 12 months, did the food you bought not last and you didn't have the money to get more?: Never true Within the past 12 months, did you worry whether your food would run out before you got money to buy more?: Never true Do you have trouble paying for medicines?: No Do you have trouble getting transportation to medical appointments?: No Do you have trouble paying your heating and electricity bill?: No Do you have trouble taking care of your child, family member or friend?: No Do you have trouble with day-to-day activities such as bathing, preparing meals, shopping, managing finances, etc.?: No Are you currently unemployed and looking for a job?: No Are you interested in more education?: No Please select the resources that you would like help with: None THRIVE Score: 0 IND[place]-7 AMB Questionnaire IND[place]-7 Date [place] - 7 assessed: 10/22/24 Feeling nervous, anxious, or on edge: 3 = Nearly every day Not being able to stop or control worryin = Nearly every day Worrying too much about different things: 3 = Nearly every day Trouble relaxin = Nearly every day Being so restless that it is hard to sit still: 3 = Nearly every day Becoming easily annoyed or irritable: 3 = Nearly every day Feeling afraid as if something awful might happen: 3 = Nearly every day Total [place]-7 score (0-4 normal; 5-9 mild; 10-14 moderate; 15-21 severe): 21 Source: Developed by Drs. Jose Cabral, Yumi Frederick, Hebert Phillips and colleagues, with an educational sejal from [employer]. Physical exam (Primary Care) Vital Signs: Last Vital Signs Temp 97.5 F 10/22/24 09:28 Pulse 75 10/22/24 09:28 Resp 16 10/22/24 09:28 BP 110/88 10/22/24 09:28 Pulse Ox 99 10/22/24 09:28 Oxygen Delivery Method Room Air 10/22/24 09:28 BMI result Body Mass Index 27.4 Tobacco/Smoking Status: Tobacco use Status Patient Tobacco Use Status Never used Tobacco 10/22/24 09:22 PHQ-9: PHQ-9 Score PHQ-9: Total score 8 10/22/24 09:31 Depression Screening Interpretation: Positive Thrive Assessment: Date of Thrive Assessment Date Thrive assessed 10/22/24 10/22/24 09:31 Coding Level of Care Code New Pt Level 4 (29576) New Pt Prev Care 40-64y(78056) Diagnoses Encounter for routine history and physical examination Z00.00 PTSD (post-traumatic stress disorder) F43.10 MDD (major depressive disorder) F32.9 Anxiety F41.9 BPH (benign prostatic hyperplasia) N40.0 Costochondritis M94.0 Additional Codes PHQ-9 - 30311 - PHQ-9 Billing: Yes ([id number]) Assessment & Plan Assessment & Plan (1) Encounter for routine history and physical examination: Code(s): Z00.00 - Encounter for general adult medical examination without abnormal findings Plan: 54year-old male in good general state of health. Plan as below (2) PTSD (post-traumatic stress disorder): Code(s): F43.10 - Post-traumatic stress disorder, unspecified Category: Medical Plan: Stable. Continue working with counselor. Continue healthy lifestyle and fluoxetine. Recommended prazosin to help with PTSD/nightmares. Patient would like to review the medication and contact the office should he desire to initiate the medication (3) MDD (major depressive disorder): Code(s): F32.9 - Major depressive disorder, single episode, unspecified Category: Medical Plan: Stable but with PHQ-9 8. Continue working with therapist as well as fluoxetine 20 mg daily. (4) Anxiety: Code(s): F41.9 - Anxiety disorder, unspecified Category: Medical Plan: Uncontrolled with [place]-7 score 21. We will continue working with counselor and continue fluoxetine 20 mg daily. Did discuss prazosin as much of his anxieties related to PTSD. He will contact the office should he desire to initiate medication (5) BPH (benign prostatic hyperplasia): Code(s): N40.0 - Benign prostatic hyperplasia without lower urinary tract symptoms Category: Medical Plan: With lots. Manageable at this time. Not interested in medication. Should symptoms worsen, will discuss initiating Flomax. PSA ordered. Will request notes from [facility]. (6) Costochondritis: Code(s): M94.0 - Chondrocostal junction syndrome [Tietze] Category: Medical Plan: Following upper respiratory tract infection. Physical exam reassuring. Can use ibuprofen or Tylenol for management of symptoms. Should symptoms not improve, contact the office Plan Routine screening labs as ordered below Continue with screening colonoscopies and PSA Continue following for annual skin exams and use sun protection Annual eye exams Wear seat belt in car Recommend regular exercise and healthy diet Follow up in 1 year Orders: Orders Complete Blood Count Auto Diff Today Z00.00 - Encounter for general adult medical examination without abnormal findings Liver Panel Today Z00.00 - Encounter for general adult medical examination without abnormal findings Basic Metabolic Panel Today Z00.00 - Encounter for general adult medical examination without abnormal findings Lipid Panel Today Z00.00 - Encounter for general adult medical examination without abnormal findings Prostate Specific Antigen Today Z00.00 - Encounter for general adult medical examination without abnormal findings Hemoglobin A1c Today Z00.00 - Encounter for general adult medical examination without abnormal findings Patient Instructions: PTSD- continue fluoxetine. Investigate prazosin which can help with PTSD/nightmares
[2024-10-22 09:28] VITALS: BP 110/88; PULSE 75; RESP 16; TEMP 36.4; O2SAT 99; BMI 27.4
--- OUTSIDE RECORDS SUMMARY | 2024-10-22 10:11 | XMS_ITS | Patient Health Record ---
Author Organization 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 Becerra's office for visit on (said _ _), Kya Damon 11/05/2023 11:16:26 AM EDT > Pt was able to get a sooner appt at [facility]. This appt was cancelled Referral Priority Routine Encounters Encounter Location Date Provider Diagnosis [facility] [address] [place] [address] 11/05/2023 Jose Quijano Plan Of Treatment No Information Insurance Providers Payer Name Payer Address Payer Phone Subscriber Number Group Number Insured Name Patient Relationship to Insured Coverage Start Date Coverage End Date [employer] [id number] [place] [id number] MAIA HERNANDEZ Self - patient is the insured
== END 2024-10-22 10:10 | disposition home or self-care (01) ==
LOC: HO.HMCHD 09:19
PROVIDERS: PCP Internal Medicine; Visit Provider Physician Assistant
DX: Z00.00 Encounter for general adult medical examination without abnormal findings (principal); F43.10 Post-traumatic stress disorder, unspecified; F32.9 Major depressive disorder, single episode, unspecified; F41.9 Anxiety disorder, unspecified; N40.0 Benign prostatic hyperplasia without lower urinary tract symptoms; M94.0 Chondrocostal junction syndrome [Tietze]

== ENCOUNTER → 2024-10-22 09:19 | Outpatient (BNVA) | payer OTHER, SELFPAY | PROVIDERS: PCP Internal Medicine; Visit Provider Physician Assistant | DX: Z00.00 Encounter for general adult medical examination without abnormal findings (principal); F43.10 Post-traumatic stress disorder, unspecified; F32.9 Major depressive disorder, single episode, unspecified; F41.9 Anxiety disorder, unspecified; N40.0 Benign prostatic hyperplasia without lower urinary tract symptoms; M94.0 Chondrocostal junction syndrome [Tietze]; Z79.899 Other long term (current) drug therapy; Z13.30 Encounter for screening examination for mental health and behavioral disorders, unspecified; Z13.31 Encounter for screening for depression | CPT/HCPCS: 96127 ==

== ENCOUNTER 2024-10-22 10:13 | Outpatient (REF) | payer OTHER, SELFPAY ==
[2024-10-22 13:06] LABS: MANUAL DIFF FLAG NO
[2024-10-22 13:10] LABS: Basophils Absolute Auto 0.1 X10*3/uL (0.0-0.2); Basophils Percent Auto 0.4 % (0-2); Eosinophils Absolute Auto 0.1 X10*3/uL (0.0-0.4); Eosinophils Percent Auto 0.4 % (0-4); Hematocrit 45.5 % (42.0-52.0); Hemoglobin 15.1 g/dl (14.0-18.0); Imm Gran Abs Auto 0.04 X10*3/uL (0.00-0.03); Imm Gran Pct Auto 0.3 % (0.0-0.4); Lymphocytes Absolute Auto 1.7 X10*3/uL (1.2-4.9); Lymphocytes Percent Auto 13.9 % (20-40); Mean Corpuscular HGB Conc 33.2 g/dl (31.0-36.0); Mean Corpuscular Hemoglobin 30.1 pg (27.0-33.0); Mean Corpuscular Volume 90.8 fL (80.0-98.0); Mean Platelet Volume 9.2 fL (9.4-12.4); Monocytes Absolute Auto 0.7 X10*3/uL (0.1-1.2); Monocytes Percent Auto 5.3 % (2-11); Neutrophils Absolute Auto 9.7 x10*3/uL (2.0-8.3); Neutrophils Percent Auto 79.7 % (45-73); Platelet Count 352 X10*3/uL (160-400); Red Blood Count 5.01 X10*6/uL (4.60-5.80); Red Cell Distribution Width 12.1 % (11.0-16.0); White Blood Count 12.2 X10*3/uL (4.8-10.8)
[2024-10-22 13:14] LABS: Estimated Average Glucose 108 mg/dL; Hemoglobin A1c % 5.4 % (<6.0)
[2024-10-22 13:27] LABS: Alanine Aminotransferase 49 U/L (0-40); Albumin Level 4.7 g/dL (3.5-5.0); Alkaline Phosphatase 84 U/L (39-117); Anion Gap 10 (12-20); Aspartate Amino Transferase 33 U/L (5-37); Bilirubin Direct 0.2 mg/dL (0.0-0.5); Bilirubin Total 0.6 mg/dL (0.0-1.0); Blood Urea Nitrogen 10 mg/dL (9-16); Calcium 9.4 mg/dL (8.4-10.2); Carbon Dioxide 28 mmol/L (22-29); Chloride 104 mmol/L (96-108); Cholesterol 160 mg/dL (<200); Estimated Glomerular Filt Rate > 60; Glucose Random 75 mg/dL (60-115); HDL Cholesterol 51 mg/dL (>40); LDL Cholesterol Calculated 92 mg/dL (<100); Potassium 4.3 mmol/L (3.3-5.1); Sodium 138 mmol/L (135-145); Total Protein 7.4 g/dL (6.5-8.0); Triglycerides 86 mg/dL (<150)
[2024-10-22 13:42] LABS: Prostate Specific Antigen 16.13 ng/mL (<0.05-4.0)
== END 2024-10-22 10:14 | disposition home or self-care (01) ==
LOC: HO.10HDL 10:13
PROVIDERS: Visit Provider Physician Assistant
DX: Z00.00 Encounter for general adult medical examination without abnormal findings (principal); Z12.5 Encounter for screening for malignant neoplasm of prostate
CPT/HCPCS: 36415; 80048; 80061; 80076; 83036; 84153; 85025

== ENCOUNTER 2025-03-11 07:58 | Outpatient (AMB) | payer OTHER, SELFPAY ==
--- OUTSIDE RECORDS SUMMARY | 2023-12-18 08:20 | XMS_ITS ---
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 Phone Mariam (RETIRED) Jose TELLO Primary Care Provide Jsoe Stallings [phone] REASON FOR VISIT Patient presents today for a COLON SCREENING Encounters Encounter Location Date Provider Diagnosis [facility] [address] [place] [phone] 12/18/2023 Jose Quijano Plan Of Treatment No Information Progress Notes * PARESH HAQUEOB: 2 (54 yo M)Acc No.[id number]:12/18/2023 Progress Notes 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 Patient presents today for a COLON SCREENING. * Medical History: Objective: * Vitals: Assessment: Plan: * Treatment: * * The named appointment provid er may or may not be the originator of this progress note, and it is not deemed complete until electronically signed by the appointment provider. Sign off status: Pending * Provider: Elida Quijano MD Date: 0 12/18/2023 Generated for Nia ortega/Homa/Sebastianitting on: 05/11/2024 08:15 AM EST
--- NOTE | 2025-03-11 08:07 | A.OFFVIS_ITS ---
Vital Signs 03/11/25 08:11 Height 6 ft Weight 205 lb BMI 27.8 BP 140/82 H Blood Pressure Location Rt brachial Position Sitting Pulse 68 Pulse Source Pulse Oximeter Pulse Oximetry (%) 98 Oxygen Delivery Method Room Air Intake Visit Reasons: 1 Yr Recall -- TA Intake Note: Est pt for recall colo screening q1 year. CC: C.O. chronic sx persistence. Pt still complains of LLQ pain, intermittent BM abnormalities (constipation + diarrhea) w/ occasional rectal bleeding. Pt states that his sx are slightly improved s/p last year's colonoscopy; however, they remain persistent w/o tx. Learning Engineer Required: No Accompanied by: Self / Same As Patient Allergies Latex, Natural Rubber Allergy (Intermediate, Verified 03/11/25 08:08) rash HPI HPI 1 Yr Recall -- TA: Details: LAST VISIT: Screen for colon cancer Plan Patient denies any cardiac or respiratory symptoms.? Denies any issues with anesthesia in the past.? Denies any history of sleep apnea.? No history infectious diseases in the past or present.? Not on any anticoagulation therapy.? Family history of CRC. Patient denies melena, hematochezia, unintentional weight loss or ribbon like stools.? Discussed at length the pre- procedure,? prep, diet & medications as well as what to expect prior, during and after the procedure.?? Stressed the importance of good bowel prep.? Recommended the use of Vaseline or Calmoseptine OTC & baby wipes with bowel movements to promote comfort.? ?Patient verbalizes understanding and agrees to plan of care.? He was given the opportunity to ask questions and all questions answered.? We will see him after the procedure.? New bisacodyl (Dulcolax (bisacodyl)) take 4 tabs at noon the day before your colonoscopy 20 mg (4 x 5 mg) PO ONCE 4 tabs 0RF 1 day Z12.11 polyethylene glycol 3350 (Miralax) As directed by gastroenterology department at [facility] 238 grams PO ONCE 238 grams 0RF Z12.11 COLONOSCOPY: Findings: Terminal Ileum-normal Cecum: 10 mm flat polyp raised with eleview injection then removed with cold snare Right sided retroflexion- normal Ascending Colon: normal Transverse Colon -normal Descending Colon:normal Sigmoid Colon: mild diverticulosis with mucosal hypertrophy and luminal narrowing At 18 cm from anal junction 14-15 mm pedunculated polyp noted, injected with epinephrine and removed with hot snare with 2 clips applied for hemostasis Rectum: Retroflexion with medium sized internal hemorrhoids seen, grade I Anorectum - normal Intervention: eleview injection, cold snare, epinephrine injection, hot snare, clips Colon preparation: [place] Bowel Preparation Scale Right colon; 2 Transverse colon: 2 Left colon; 2 (0 = Unprepared colon segment with mucosa not seen due to solid stool that cannot be cleared. 1 = Portion of mucosa of the colon segment seen, but other areas of the colon segment not well seen due to staining, residual stool and/or opaque liquid. 2 = Minor amount of residual staining, small fragments of stool and/or opaque liquid, but mucosa of colon segment seen well. 3 = Entire mucosa of colon segment seen well with no residual staining, small f ragments of stool or opaque liquid) Impression and Post Procedure Diagnosis: diverticulosis colon polyps internal hemorrhoids Plan: High fiber diet leaflet Avoid straining at stool, epsom salts and sitz bath, anusol supps or cream Repeat Colonoscopy in 1 year or earlier if clinically indicated PATHOLOGY: Diagnosis A. Colon, cecum, polypectomy: Sessile serrated polyp/lesion without dysplasia. B. Colon, sigmoid, polypectomy: Clinically polypoid colonic mucosa noted; negative for a hyperplastic or neoplastic process. C. Rectosigmoid, polypectomy: Tubular adenoma; negative for high-grade dys plasia. TODAY'S VISIT: Patient is here today for follow-up and to discuss colonoscopy. Patient had colonoscopy in March of 2024, tubular adenoma found without high-grade dysplasia or carcinoma. Recommendation was for 1 year recall. Patient reports that he has been doing fairly well. Occasional left lower quadrant pain, occasional incomplete emptying. Denies melena, unintentional weight loss or ribbon like stools. Patient does report occasional blood in his to when straining. Patient denies dyspepsia, dysphagia or odynophagia. Denies any issues with anesthesia in the past. Denies history of sleep apnea [facility] Medical History (Updated 04/04/25 @ 13:10 by Beronica Ruiz, [facility]) Tubular adenoma of colon Elevated PSA BPH (benign prostatic hyperplasia) Chronic low back pain Anxiety MDD (major depressive disorder) PTSD (post-traumatic stress disorder) GERD (gastroesophageal reflux disease) Anxiety and depression Surgical History S/P arthroscopy of right knee History of radial keratotomy S/P tonsillectomy History of colonoscopy (~03/20/24) Family History Unknown Rectal cancer Social History Alcohol intake: current Alcohol intake frequency: a few times a week Comment: Occasional/socially Patient Tobacco Use Status: Never used Tobacco Review of Systems Const Denies weight gain and Denies weight loss ENT Reports no additional complaints, Denies dysphagia and Denies odynophagia Card Reports no additional complaints Resp Reports no additional complaints GI Reports abdominal pain (LLQ), Denies belching, Denies melena, Denies bloating, Denies change in bowel habits, Reports constipation, Denies dysphagia, Denies excessive flatus, Denies dyspepsia, Denies heartburn, Denies diarrhea, Denies loose stools, Denies nausea, Denies odynophagia and Denies vomiting Reports no additional complaints Musc Reports no additional complaints Neuro Reports no additional complaints Psych Reports no additional complaints Endo Reports no additional complaints Physical Exam Vital Signs: Last Vital Signs Pulse 68 03/11/25 08:11 BP 140/82 H 03/11/25 08:11 Pulse Ox 98 03/11/25 08:11 Oxygen Delivery Method Room Air 03/11/25 08:11 BMI result Body Mass Index 27.8 Const General: healthy appearing, no acute distress and well developed Nutritional Appearance: well nourished Orientation/consciousness: patient oriented x3 Resp Effort & Inspection: normal respiratory effort, able to speak in complete sentences, no tracheal deviation and symmetric chest movement Auscultation: clear to auscultation bilaterally Cardio Rate: regular rate GI Inspection: Yes normal to inspection and No distended Palpation (GI): Soft to palpation, not firm, nontender and No hepatosplenomegaly present Auscultation: normal bowel sounds General: Yes no CVA tenderness Back/Spine/Pelvis Back: no CVA tenderness Skin General skin exam: elasticity normal, turgor normal and dry skin Neuro General: patient oriented x3 Psych Appearance: grossly normal Mental Status: mental status grossly normal Assessment & Plan Assessment & Plan (1) Tubular adenoma of colon: Code(s): D12.6 - Benign neoplasm of colon, unspecified Category: Medical (2) Encounter for screening for malignant neoplasm of colon: Code(s): Z12.11 - Encounter for screening for malignant neoplasm of colon Plan Patient was encouraged to increase fluid intake and activity to promote bowel motility. What to expect before during and after procedure discussed with patient. Stressed the importance of good bowel prep in clear liquid diet day before procedure. I will see patient after the procedure. He will call us if he will have any GI concerning symptoms. He is agreeable to current plan of care and verbalizes understanding of instructions. He was given the opportunity to ask questions and all questions answered. Thank you for allowing me to participate in his care Orders: Referrals GI Procedure Notification Z12.11 - Encounter for screening for malignant neoplasm of colon Medications: New bisacodyl (Dulcolax (bisacodyl)) take 4 tabs at noon the day before your colonoscopy 20 mg (4 x 5 mg) PO ONCE 4 tabs 0RF constipation 1 day Z12.11 - Encounter for screening for malignant neoplasm of colon polyethylene glycol 3350 (Miralax) As directed by gastroenterology department at [facility] 238 grams PO ONCE 238 grams 0RF Z12.11 - Encounter for screening for malignant neoplasm of colon Coding Level of Care Code Est Pt Level 3 (33423) Diagnoses Tubular adenoma of colon D12.6 Encounter for screening for malignant neoplasm of colon Z12.11 Time Spent (min) 30 Comment 20 minutes spent with patient and additional 10 minutes spent reviewing his records
[2025-03-11 08:11] VITALS: BP 140/82; PULSE 68; O2SAT 98; BMI 27.8
--- OUTSIDE RECORDS SUMMARY | 2025-03-11 08:14 | XMS_ITS | Patient Health Record ---
Author Organization [facility] Address [address] [place] [address] Care Team Providers Care Cisco Network Engineer Name Role Phone Mariam (RETIRED) Jose TELLO Primary Care Provide r Unavailable Jose Quijano Unavailable [phone] Reason For Referral No Information Plan Of Treatment No Information Insurance Providers Payer Name Payer Address Payer Phone Subscriber Number Group Number Insured Name Patient Relationship to Insured Coverage Start Date Coverage End Date [facility] [address] [place] VALENZUEL[place] [id number] MAIA HERNANDEZ Self - patient is the insured
--- OUTSIDE RECORDS SUMMARY | 2025-03-11 08:15 | XMS_ITS | Clinical Summary ---
Author Organization [address] [facility] Address [address] [place] [address] Phone Care Team Providers Care Quarter Section Ironer Name Role Phone Physician, Pcp Unknown Primary Care Provider Allie vailable Encounters Date Type Department Care Team Description 01/07/[address] [facility] - Main Lab [address] [facility] [place] [address] Rm Palmer MD Other specified disorders of prostate from Last 3 Months Social History Tobacco Use Types Packs/Day Years Used Date Smoking Tobacco: Never Assessed Sex and Gender Information Value Date Recorded Sex Assigned at Not on file Legal Sex Male 1:35 PM EDT Gender Identity Not on file Sexual Orientation Not on file Plan of Treatment Health Maintenance Due Date Last Done Comments Colorectal Cancer Screening: Colonoscopy 1971 DTaP,Tdap,and Td Vaccines (1 - Tdap) 09/06/1990 Hepatitis B Vaccines (1 of 3 - 19+ 3-dose series) 09/06/1990 Pneumococcal Vaccine: 50+ Ye ars (1 of 1 - PCV) 09/06/2021 Zoster Vaccines (1 of 2) 09/06/2021 Cholesterol Screening (Lipid Panel) 12/04/2023 HIV Screening 12/04/2023 Hepatitis C Screening 12/04/2023 Social Influencers of Health Screening 12/04/2023 Depression Screening 05/07/2024 COVID-19 Vaccine ( - 2023-2 5 season) 2025 Influenza Vaccine (#1) 2025 RSV Immunization Adult Patie nts (1 - 1-dose 75+ series) 09/06/2046 HIB Vaccines Aged Out No longer eligi ble based on patient's age to complete this topic HPV Vaccines Aged Out No longer eligi ble based on patient's age to complete this topic Hepatitis A Vaccines Aged Out No long er eligible based on patient's age to complete this topic IPV Vaccines Aged Out No longer eligi ble based on patient's age to complete this topic MMR Vaccines Aged Out No longer eligi ble based on patient's age to complete this topic Meningococcal ACWY Vaccine Aged Out N o longer eligible based on patient's age to complete this topic Meningococcal B Vaccine Aged Out No l onger eligible based on patient's age to complete this topic RSV Immunization Patients Un qian 20 months Aged Out No longer eligible b ased on patient's age to complete this topic Varicella Vaccines Aged Out No longer eligible based on patient's age to complete this topic Procedures Procedure Name Priority Date/Time Associated Diagnosis Comments TISSUE EXAM Routine 01/06/2025 Other specified disorders of prostate from Last 3 Months Results * Tissue Exam (01/06/2025) Final Diagnosis A. Prostate, Left Middle [place] Biopsy: Benign prostate tissue. B. Prostate, Left Lateral [place] Biopsy: Benign prostate tissue. C. Prostate, Left Middle Middle Biopsy: Benign prostate tissue. D. Prostate, Left Lateral Middle Biopsy: Benign prostate tissue. E. Prostate, Left Middle Base Biopsy: Benign prostate tissue. F. Prostate, Left Lateral Base Biopsy: Benign prostate tissue. G. Prostate, Right Middle [place] Biopsy: Benign prostate tissue. H. Prostate, Right Lateral [place] Biopsy: Benign prostate tissue. I. Prostate, Right Middle Middle Biopsy: Benign prostate tissue. J. Prostate, Right Lateral Middle Biopsy: Benign prostate tissue. K. Prostate, Right Middle Base Biopsy: Benign prostate tissue. L. Prostate, Right Lateral Base Biopsy: Benign prostate tissue. M. Prostate, Right [place] Base Biopsy: Benign prostate tissue with focal acute inflammation . N. Prostate, Right PZ Base Biopsy: Benign prostate tissue with focal chronic inflammation . 01/12/2025 5:33 PM EDT [facility] ([facility]) [facility] Clinical Information Elevated PSA N42.89 PSA: 16.13 (10/22/2024) [id number] 01/12/2025 5:33 PM EDT [facility] Gross Description A. Prostate, Left Middle [place] Biopsy: Received, properly labeled, are two H and E stained slides and two unstained slides. B. Prostate, Left Lateral [place] Biopsy: Received, properly labeled, are two H and E stained slides and two unstained slides. C. Prostate, Left Middle Middle Biopsy: Received, properly labeled, are two H and E stained slides and two unstained slides. D. Prostate, Left Lateral Middle Biopsy: Received, properly labeled, are two H and E stained slides and two unstained slides. E. Prostate, Left Middle Base Biopsy: Received, properly labeled, are two H and E stained slides and two unstained slides. F. Prostate, Left Lateral Base Biopsy: Received, properly labeled, are two H and E stained slides and two unstained slides. G. Prostate, Right Middle [place] Biopsy: Received, properly labeled, are two H and E stained slides and two unstained slides. H. Prostate, Right Lateral [place] Biopsy: Received, properly labeled, are two H and E stained slides and two unstained slides. I. Prostate, Right Middle Middle Biopsy: Received, properly labeled, are two H and E stained slides and two unstained slides. J. Prostate, Right Lateral Middle Biopsy: Received, properly labeled, are two H and E stained slides and two unstained slides. K. Prostate, Right Middle Base Biopsy: Received, properly labeled, are two H and E stained slides and two unstained slides. L. Prostate, Right Lateral Base Biopsy: Received, properly labeled, are two H and E stained slides and two unstained slides. M. Prostate, Right Central Zone Base Biopsy: Received, properly labeled, are two H and E stained slides and two unstained slides. N. Prostate, Right PZ Base Biopsy: Received, properly labeled, are two H and E stained slides and two unstained slides. /al 01/12/2025 5:33 PM EDT [facility] Disclaimer Unless otherwise specified, all tissue is 10% NB formalin fixed and paraffin embedded. Technical pathology services provided by [facility] at [address] [place] [address] [address], [place] [address] (CLIA #[id number]/ Pinky Garcia MD, Account Services Analyst) 01/12/2025 5:33 PM EDT [facility] Tissue Prostate / Unknown 01/06/20252024 12:45 PM EDT Tissue specimen (specimen) Prostate / Unknown 01/06/2025 01/07/2025 12 :48 PM EDT Tissue specimen (specimen) Prostate / Unknown 01/06/2025 01/07/2025 12 :48 PM EDT Tissue specimen (specimen) Prostate / Unknown 01/06/2025 01/07/2025 12 :48 PM EDT Tissue specimen (specimen) Prostate / Unknown 01/06/2025 01/07/2025 12 :48 PM EDT Tissue specimen (specimen) Prostate / Unknown 01/06/2025 01/07/2025 12 :48 PM EDT Tissue specimen (specimen) Prostate / Unknown 01/06/2025 01/07/2025 12 :48 PM EDT Tissue specimen (specimen) Prostate / Unknown 01/06/2025 01/07/2025 12 :48 PM EDT Tissue specimen (specimen) Prostate / Unknown 01/06/2025 01/07/2025 12 :48 PM EDT Tissue specimen (specimen) Prostate / Unknown 01/06/2025 01/07/2025 12 :48 PM EDT Tissue specimen (specimen) Prostate / Unknown 01/06/2025 01/07/2025 12 :48 PM EDT Tissue specimen (specimen) Prostate / Unknown 01/06/2025 01/07/2025 12 :48 PM EDT Tissue specimen (specimen) Prostate / Unknown 01/06/2025 01/07/2025 12 :48 PM EDT Tissue specimen (specimen) Prostate / Unknown 01/06/2025 01/07/2025 12 :48 PM EDT Rm Palmer MD LAB PATHOLOGY ORDERABLES Final Result [facility] ([facility] [address] [place] [address], from Last 3 Months Insurance [facility] Care Teams Quarter Section Ironer Relationship Specialty Start Date End Date Physician, Pcp Unknown PCP - General 01/07/25
--- OUTSIDE RECORDS SUMMARY | 2025-03-11 08:15 | XMS_ITS | Encounter Summary ---
Author Organization [facility] Address [address] [place] [address] Care Team Providers Care Product Blending Supervisor Name Role Phone Physician, Pcp Unknown Primary Care Provider Allie vailable Encounter Details Date Type Department Care Team (Late st Contact Info) Description 01/07/2025 Lab Requisition [facility] - Main Lab [address] [facility] [place] [address] Rm Palmer MD [address] [place] [phone] Other specified disorders of prostate Social History Tobacco Use Types Packs/Day Years Used Date Smoking Tobacco: Never Assessed Sex and Gender Information Value Date Recorded Sex Assigned at Not on file Legal Sex Male 1:35 PM EDT Gender Identity Not on file Sexual Orientation Not on file documented as of this encounter Plan of Treatment Not on file documented as of this encounter Procedures Procedure Name Priority Date/Time Associated Diagnosis Comments TISSUE EXAM Routine 01/06/2025 Other specified disorders of prostate documented in this encounter Results * Tissue Exam (01/06/2025) Final Diagnosis A. Prostate, Left Middle [place] Biopsy: Benign prostate tissue. B. Prostate, Left Lateral [place] Biopsy: Benign prostate tissue. C. Prostate, Left Middle Middle Biopsy: Benign prostate tissue. D. Prostate, Left Lateral Middle Biopsy: Benign prostate tissue. E. Prostate, Left Middle Base Biopsy: Benign prostate tissue. F. Prostate, Left Lateral Base Biopsy: Benign prostate tissue. G. Prostate, Right Middle [place] Biopsy: Benign prostate tissue. H. Prostate, Right Lateral [place] Biopsy: Benign prostate tissue. I. Prostate, Right [...] focal chronic inflammation . 01/12/2025 5:33 PM T [facility] Clinical Information Elevated PSA N42.89 PSA: 16.13 (10/22/2024) [id number] 01/12/2025 5:33 PM EDT [facility] Gross Description A. Prostate, Left Middle [place] Biopsy: Received, properly labeled, are two H and E stained slides and two unstained slides. B. Prostate, Left Lateral [place] Biopsy: Received, properly labeled, are two H [...] two unstained slides. G. Prostate, Right Middle [place] Biopsy: Received, properly labeled, are two H and E stained slides and two unstained slides. H. Prostate, Right Lateral [place] Biopsy: Received, properly labeled, are two H [...] unstained slides. /al 01/12/2025 5:33 PM EDT [facility] Disclaimer Unless otherwise specified, all tissue is 10% NB formalin fixed and paraffin embedded. Technical pathology services provided by [facility] [address] [place] [address] (CLIA #[id number]/ Pinky Garcia MD, Hand Alterations Seamstress) 01/12/2025 5:33 PM EDT [facility] Tissue Prostate / Unknown 01/06/20252024 [...] Unknown 01/06/2025 01/07/2025 12 :48 PM EDT us Rm Palmer MD LAB PATHOLOGY ORDERABLES Final Result Performing Organization Address City/State/[facility] Co de Phone Number [facility] [address] [place] [address], documented in this encounter Visit Diagnoses Diagnosis Other specified disorders of prostate documented in this encounter Care Teams Product Blending Supervisor Relationship Specialty Start Date End Date Physician, Pcp Unknown PCP - General 01/07/25 documented as of this encounter
--- OUTSIDE RECORDS SUMMARY | 2025-03-11 08:15 | XMS_ITS | Patient Health Record ---
Author Organization [facility] Address [address] [facility] [place] [address] Care Team Providers Care Evaluation Engineer Name Role Phone Jose Becerra MD Primary Care Provider Neeraj Montalvo Unavailable [phone] Allergies Allergen (clinical drug ingredient) Drug/Non Drug Allergy documented on EMR Reaction Allergy Type Onset Date Status latex Unknown Drug Allergy Active Reason For Referral No Information Medications Medication SIG (Take, Route, Frequency, Duration) Notes Start Date End Date Status FLUoxetine HCl 20 MG Oral; Duration: 90 Active Afluria Preservative Free Intramuscular; Duration: 1 Not-Taking zzzOT Refurbishment . refurbish with ful l length extensions . .; Duration: . 07/03/2014 Active Problems Problem Type SNOMED Code ICD Code Onset Dates Problem Status W/U Status Risk Notes Problem Calcaneal spur (29828677) Calcaneal spur (726.73) Active confirmed Problem Plantar fasciitis (910751735) Plantar Fasciitis (728.71) Active confirmed Plan Of Treatment No Information Insurance Providers Payer Name Payer Address Payer Phone Subscriber Number Group Number Insured Name Patient Relationship to Insured Coverage Start Date Coverage End Date [place] [address] [place] [phone] [id number] Ric Cummings Self - patient is the insured
== END 2025-03-11 08:44 | disposition home or self-care (01) ==
LOC: HO.HGI 08:07
PROVIDERS: PCP Internal Medicine; Visit Provider Nurse Practitioner Family
DX: Z01.818 Encounter for other preprocedural examination (principal); Z12.11 Encounter for screening for malignant neoplasm of colon; Z86.0101 Personal history of adenomatous and serrated colon polyps
CPT/HCPCS: 99213